=== PATIENT | male | born 1985 | race Caucasian/White ===

== ENCOUNTER 2016-11-26 01:54 | Emergency (ER) | payer SELFPAY ==
[2016-11-26 02:08] VITALS: BP 135/96
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
[2016-11-26 02:48] LABS: CHLORIDE,CL 100 mmol/L (101-111); SODIUM,NA 141 mmol/L (135-145)
[2016-11-26] MEDS ORDERED: Acetaminophen/HYDROcodone 325-10 MG Tab ONE (02:56)
[2016-11-26] MEDS ORDERED: Clindamycin HCl 150 MG Cap ONE (02:56)
[2016-11-26] MEDS ORDERED: Mupirocin Oint 22 GM Tube TOP ONE (02:57)
[2016-11-26] MEDS ORDERED: Clindamycin HCl 150 MG Cap PO ONE (02:57)
[2016-11-26] MEDS ORDERED: Acetaminophen/HYDROcodone 325-10 MG Tab PO ONE (02:57)
[2016-11-26] MEDS ORDERED: Potassium Chloride 10 MEQ Tab.ER ONE ×2 (02:57→03:04)
[2016-11-26] MEDS ORDERED: Mupirocin Oint 22 GM Tube ONE (02:57)
[2016-11-26] MEDS ORDERED: Potassium Chloride 10 MEQ Tab.ER PO ONE (03:04)
== END 2016-11-26 03:10 | disposition home or self-care (01) ==
LOC: DL.ED 01:54
DX: S20.212A Contusion of left front wall of thorax, initial encounter (principal); S80.811A Abrasion, right lower leg, initial encounter; L03.115 Cellulitis of right lower limb; E87.6 Hypokalemia; Z88.8 Allergy status to other drugs, medicaments and biological substances; V29.88XA Motorcycle rider (driver) (passenger) injured in other specified transport accidents, initial encounter; Y92.410 Unspecified street and highway as the place of occurrence of the external cause
CPT/HCPCS: 36415; 80053; 83605; 85025; 87070; 99283; A9270; 87077; 87186

== ENCOUNTER 2019-11-21 03:05 | Emergency (ER) | payer SELFPAY ==
[2019-11-21 03:12] VITALS: PULSE 67
[2019-11-21] MEDS: Silver Sulfadiazine 1% Crm 50 GM Tube TOP ONE (03:28)
[2019-11-21] MEDS: Cephalexin 500 MG Cap PO ONE (03:28)
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
[2019-11-21 03:46] VITALS: BP 144/104
== END 2019-11-21 03:36 | disposition home or self-care (01) ==
LOC: DL.ED 03:05
DX: T22.211A Burn of second degree of right forearm, initial encounter (principal); T25.221A Burn of second degree of right foot, initial encounter; T23.201A Burn of second degree of right hand, unspecified site, initial encounter; Z88.8 Allergy status to other drugs, medicaments and biological substances; X08.8XXA Exposure to other specified smoke, fire and flames, initial encounter
CPT/HCPCS: 16020; 99283; A9270

== ENCOUNTER 2019-11-21 04:52 | Emergency (ER) | payer SELFPAY ==
[2019-11-21 05:01] VITALS: BP 148/95; PULSE 90
[2019-11-21] MEDS: Acetaminophen 325 MG Tab PO ONE (05:10)
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
== END 2019-11-21 05:21 | disposition home or self-care (01) ==
LOC: DL.ED 04:52
DX: T22.211A Burn of second degree of right forearm, initial encounter (principal); T25.221A Burn of second degree of right foot, initial encounter; T23.201A Burn of second degree of right hand, unspecified site, initial encounter; Z88.8 Allergy status to other drugs, medicaments and biological substances; X08.8XXA Exposure to other specified smoke, fire and flames, initial encounter
CPT/HCPCS: 99283; A9270

== ENCOUNTER 2020-05-17 05:29 | Emergency (ER) | payer SELFPAY ==
--- NOTE | 2020-05-17 05:39 | EDM.PDOC ---
ED HPI GENERAL MEDICAL PROBLEM - General Stated Complaint: THROAT AREA SWELLING Time Seen by Provider: 05/17/20 05:38 Source of Information: Reports: Patient History Limitations: Reports: No Limitations - History of Present Illness INITIAL COMMENTS - FREE TEXT/NARRATIVE: 1 week h/o sore throat worse past few days not seen anyone and not getting better. worse tonight. Throat Pain Score (Numeric/FACES): 10 - Related Data Allergies Allergy/AdvReac Type Severity Reaction Status Date / Time chlorpromazine HCl Allergy schizopreni Verified 05/17/20 05:44 [From Thorazine] a Home Meds: Home Meds . [No Known Home Meds] 05/17/20 [History] Past Medical History - Past Health History Medical/Surgical History: Denies Medical/Surgical History Respiratory History: Reports: Other (See Below) Other Respiratory History: gets sick from second hand smoke - Past Surgical History Musculoskeletal Surgical History: Reports: Other (See Below) Other Musculoskeletal Surgeries/Procedures:: L) ankle surgery Social & Family History - Family History Family Medical History: Unobtainable - Caffeine Use Caffeine Use: Reports: Soda ED ROS ENT - Review of Systems Review Of Systems: Comprehensive ROS is negative, except as noted in HPI. ED EXAM, ENT - Physical Exam Exam: See Below Exam Limited By: No Limitations General Appearance: Alert, WD/WN, Mild Distress, Other (disocmfort) Ears: Hearing Grossly Normal Mouth/Throat: Pharyngeal Erythema, Tonsillar Erythema, Tonsillar Swelling. No: Drooling Head: Atraumatic Neck: Non-Tender, Full Range of Motion Respiratory/Chest: No Respiratory Distress Cardiovascular: Regular Rate, Rhythm GI/Abdominal: Soft, Non-Tender (Male) Exam: Deferred Rectal (Males) Exam: Deferred Neurological: Alert, Oriented, Normal Cognition, Normal Gait, No Motor/Sensory Deficits Psychiatric: Flat Affect Skin: Warm, Dry, Normal Color Lymphatic: No Adenopathy Course - Vital Signs Last Recorded V/S: Last Vital Signs Temp 35.8 C L 05/17/20 05:40 Pulse 105 H 05/17/20 05:40 Resp 16 05/17/20 05:40 BP 137/96 H 05/17/20 05:40 Pulse Ox 97 05/17/20 05:40 - Orders/Labs/Meds Orders: Active Orders 24 hr Category Date Time Status CULTURE STREP A CONFIRMATION [RM] Stat Lab 05/17/20 05:34 Results STREP SCRN A RAPID W CULT CONF [RM] Stat Lab 05/17/20 05:34 Results - Re-Assessments/Exams Free Text/Narrative Re-Assessment/Exam: 05/17/20 06:06 results discussed with pt. Departure - Departure Time of Disposition: 06:06 Disposition: Home, Self-Care 01 Condition: Good Clinical Impression: Tonsillopharyngitis - Discharge Information Instructions: Tonsillitis, [id number] Forms: ED Department Discharge Additional Instructions: 1) avoid solid foods next 48 hours 2) have liquids and soft diet 3) continue salt water gargle 4) take tylenol or motrin as needed rx given; z-rex Sepsis Event Note (ED) - Focused Exam Vital Signs: Vital Signs Temp Pulse Resp BP Pulse Ox 05/17/20 05:40 35.8 C L 105 H 16 137/96 H 97 - My Orders Last 24 Hours: My Active Orders 05/17/20 05:34 CULTURE STREP A CONFIRMATION [RM] Stat STREP SCRN A RAPID W CULT CONF [RM] Stat - Assessment/Plan Last 24 Hours: My Active Orders 05/17/20 05:34 CULTURE STREP A CONFIRMATION [RM] Stat STREP SCRN A RAPID W CULT CONF [RM] Stat
[2020-05-17 05:43] VITALS: BP 137/96; PULSE 105
[2020-05-17] MEDS ORDERED: Azithromycin 250 MG Tab PO ONE (06:07)
== END 2020-05-17 06:18 | disposition home or self-care (01) ==
LOC: DL.ED 05:29
DX: J03.90 Acute tonsillitis, unspecified (principal); Z88.8 Allergy status to other drugs, medicaments and biological substances
CPT/HCPCS: 87081; 87430; 99282; 99283; A9270

== ENCOUNTER 2022-04-07 04:58 | Emergency (ER) | payer SELFPAY ==
[2022-04-07 04:32] LABS: ANION GAP 17.8 mEq/L (7-13); CHLORIDE,CL 100 mmol/L (98-107); SODIUM,NA 136 mmol/L (136-145)
[2022-04-07 04:38] LABS: ACETAMINOPHEN 0 ug/mL (10-30 (Therapeutic)); ESTIMATED GFR 52 mL/min (>=60)
[~2022-04-07 04:58] MED LIST: Diphtheria,Pertussis(Acell),Tetanus Vaccine 0.5 ML Syringe IM ONE; Iopamidol 612 MG/ML 100 ML Bottle IVPUSH ONE; Lactated Ringers 1,000 ML IV ONE; Lidocaine 1% 10 ML MDV ONE; Lidocaine 1% with EPINEPHrine 1:100,000 20 ML MDV ONE; ceFAZolin 1 GM in Sodium Chloride 0.9% 50 ML IV ONE
== END 2022-04-07 05:00 ==
LOC: DL.ED 04:58
DX: S01.01XA Laceration without foreign body of scalp, initial encounter (principal); S61.511A Laceration without foreign body of right wrist, initial encounter; Z23 Encounter for immunization; Z88.8 Allergy status to other drugs, medicaments and biological substances; Y09 Assault by unspecified means
CPT/HCPCS: 12004; 36415; 70450; 70486; 71260; 72125; 73110; 74177; 80053; 80143; 80179; 80307; 85025; 90471; 90715; 99285; J0690; J7120

== ENCOUNTER 2022-07-07 23:59 | Emergency (ER) | payer BC, MEDICAID ==
[2022-07-08 00:08] VITALS: BP 149/122; PULSE 90
[2022-07-08] MEDS ORDERED: Acetaminophen/HYDROcodone 325-10 MG Tab PO ONE (00:26)
== END 2022-07-08 00:37 | disposition home or self-care (01) ==
LOC: DL.ED 23:59
DX: G89.18 Other acute postprocedural pain (principal); M79.641 Pain in right hand; Z88.8 Allergy status to other drugs, medicaments and biological substances
CPT/HCPCS: 99283; A9270-GY

== ENCOUNTER 2022-12-01 01:39 | Emergency (ER) | payer MEDICAID ==
[2022-12-01 02:26] VITALS: BP 155/116; PULSE 90
[2022-12-01] MEDS ORDERED: Sodium Chloride 0.9% 10 ML Syringe FLUSH PRN (02:41)
[2022-12-01] MEDS ORDERED: Ketorolac 30 MG/ML SDV IVPUSH ONE (02:42)
[2022-12-01] MEDS ORDERED: Sodium Chloride 0.9% 1,000 ML IV ONE (02:42)
[2022-12-01 02:48] LABS: BASOPHILS PERCENT AUTO 0.6 % (0.0-1.0); EOSINOPHILS PERCENT AUTO 5.3 % (1.0-3.0); HEMATOCRIT 46.9 % (40.0-54.0); HEMOGLOBIN 14.9 g/dL (14.0-18.0); LYMPHOCYTES PERCENT AUTO 29.7 % (20.5-50.1); MEAN CORPUSCULAR HEMOGLOBIN 28.9 pg (27.0-34.0); MEAN CORPUSCULAR HGB CONC 31.8 g/dL (33.0-35.0); MEAN CORPUSCULAR VOLUME 90.9 fL (80-100); MONOCYTES PERCENT AUTO 12.5 % (2-8); NEUTROPHILS PERCENT AUTO 51.9 % (42.2-75.2); PLATELET COUNT,PLT 173 10^3/uL (150-450); RED BLOOD CELL COUNT 5.16 10^6/uL (4.6-6.2); WHITE BLOOD CELL COUNT,WBC 6.2 10^3/uL (5.0-10.0)
[2022-12-01 02:57] LABS: A/G RATIO 0.9; ALANINE AMINOTRANSFERASE,ALT 28 U/L (16-63); ALBUMIN 3.4 g/dL (3.4-5.0); ALKALINE PHOSPHATASE 112 U/L (46-116); ANION GAP 12.7 mEq/L (7-13); ASPARTATE AMNIOTRANSFERASE,AST 16 U/L (15-37); BILIRUBIN TOTAL 0.2 mg/dL (0.2-1.0); BLOOD UREA NITROGEN,BUN 24 mg/dL (7-18); BUN/CREATININE RATIO 19.4 (No establ ref range); CALCIUM 8.5 mg/dL (8.5-10.1); CARBON DIOXIDE,CO2 28 mmol/L (21-32); CHLORIDE,CL 104 mmol/L (98-107); CREATININE 1.24 mg/dL (0.70-1.30); GLUCOSE RANDOM 140 mg/dL (70-99); POTASSIUM,K 3.7 mmol/L (3.5-5.1); PROTEIN TOTAL,TP 7.4 g/dL (6.4-8.2); SODIUM,NA 141 mmol/L (136-145)
[2022-12-01 03:00] LABS: ESTIMATED GFR 76 mL/min (>=60)
[2022-12-01 06:10] LABS: APPEARANCE,URINE CLEAR (CLEAR); BILIRUBIN,URINE NEGATIVE (NEGATIVE); COLOR,URINE YELLOW (YELLOW); GLUCOSE,URINE NEGATIVE (NEGATIVE); KETONES,URINE NEGATIVE (NEGATIVE); LEUKOCYTE ESTERASE,URINE NEGATIVE (NEGATIVE); NITRITE,URINE NEGATIVE (NEGATIVE); OCCULT BLOOD,URINE MODERATE (NEGATIVE); PROTEIN,URINE NEGATIVE (NEGATIVE); UROBILINOGEN,URINE 0.2 mg/dL (0.2-1.0)
[2022-12-01 06:19] LABS: BACTERIA,URINE RARE /HPF (0-FEW/HPF); EPITHELIAL CELLS,URINE RARE /HPF (NOT SEEN); RBC,URINE 30-40 /HPF (0-5); WBC,URINE NOT SEEN /HPF (0-5/HPF)
== END 2022-12-01 06:04 | disposition home or self-care (01) ==
LOC: DL.ED 01:39
DX: N13.2 Hydronephrosis with renal and ureteral calculous obstruction (principal); Q61.3 Polycystic kidney, unspecified; Z88.8 Allergy status to other drugs, medicaments and biological substances
CPT/HCPCS: 36415; 74176; 80053; 81001; 85025; 96374; 99284; J1885; J7030; J3490

== ENCOUNTER → 2023-01-20 | Day surgery (SDC) | payer MEDICAID ==
[~2023-01-20] MED LIST changes: +Dextrose 5%-0.45% NaCl 1,000 ML IV SCH; -Diphtheria,Pertussis(Acell),Tetanus Vaccine 0.5 ML Syringe IM ONE; -Iopamidol 612 MG/ML 100 ML Bottle IVPUSH ONE; -Lactated Ringers 1,000 ML IV ONE; -Lidocaine 1% 10 ML MDV ONE; -Lidocaine 1% with EPINEPHrine 1:100,000 20 ML MDV ONE; +Midazolam 1 MG/ML 2 ML SDV IV ONE; +Midazolam 1 MG/ML 2 ML SDV ONE; -ceFAZolin 1 GM in Sodium Chloride 0.9% 50 ML IV ONE; +fentaNYL 100 MCG/2 ML SDV IV ONE; +fentaNYL 100 MCG/2 ML SDV ONE
[2023-01-20 08:36] VITALS: BP 124/87; PULSE 66
== END | disposition home or self-care (01) ==
LOC: DL.ENDO 05:14
PROVIDERS: ATTEND Internal Medicine Gastroenterology
DX: K29.80 Duodenitis without bleeding (principal); K29.50 Unspecified chronic gastritis without bleeding; B96.81 Helicobacter pylori [H. pylori] as the cause of diseases classified elsewhere; K21.9 Gastro-esophageal reflux disease without esophagitis; E66.09 Other obesity due to excess calories; F20.9 Schizophrenia, unspecified; Z68.33 Body mass index [BMI] 33.0-33.9, adult; Z88.8 Allergy status to other drugs, medicaments and biological substances
CPT/HCPCS: 43239; 87077; J2250; J3010; J7042

== ENCOUNTER 2024-05-27 20:12 | Emergency (ER) | payer OTHER, BC ==
[2024-05-27] MEDS: Ketorolac 30 MG/ML SDV IM ONE (21:35)
[2024-05-27 23:20] VITALS: BP 130/92; PULSE 97
== END 2024-05-27 23:15 | disposition home or self-care (01) ==
LOC: DL.ED 20:12
DX: S93.491A Sprain of other ligament of right ankle, initial encounter (principal); M25.562 Pain in left knee; R07.81 Pleurodynia; I10 Essential (primary) hypertension; E78.00 Pure hypercholesterolemia, unspecified; E11.9 Type 2 diabetes mellitus without complications; E66.9 Obesity, unspecified; Z79.899 Other long term (current) drug therapy; Z77.22 Contact with and (suspected) exposure to environmental tobacco smoke (acute) (chronic); Z88.8 Allergy status to other drugs, medicaments and biological substances; Z68.33 Body mass index [BMI] 33.0-33.9, adult; X50.1XXA Overexertion from prolonged static or awkward postures, initial encounter; W01.0XXA Fall on same level from slipping, tripping and stumbling without subsequent striking against object, initial encounter
CPT/HCPCS: 71101; 73562; 73610; 96372; 99283; J1885